=== PATIENT | female | born 1950 | race Caucasian/White ===

== ENCOUNTER → 2018-04-01 10:57 | Outpatient (CLI) | payer OTHER, SELFPAY ==
--- NOTE | 2018-04-01 | DI.MG.S_ITS ---
BILATERAL DIGITAL SCREENING MAMMOGRAM 3D/2D WITH CAD: 04/01/2018 CLINICAL: Routine screening. Family history of breast cancer. Comparison is made to exams dated: 05/07/2016 mammogram, 05/02/2016 mammogram, and 06/12/2013 mammogram - [facility]. There are scattered fibroglandular elements in both breasts. Current study was also evaluated with a Computer Aided Detection (CAD) system. There is a focal asymmetry in the right breast at 10 o'clock anterior depth. No other significant masses, calcifications, or other findings are seen in either breast. IMPRESSION: INCOMPLETE: NEEDS ADDITIONAL IMAGING EVALUATION The focal asymmetry in the right breast is indeterminate. Additional views with possible ultrasound are recommended. This exam was interpreted at Station ID: [id number]. NOTE: For mammograms, a report in lay terms will be sent to the patient. Approximately 15% of breast malignancies will not be visualized mammographically. In the management of a palpable breast mass, a negative mammogram must not discourage biopsy of a clinically suspicious lesion. Electronically Signed By: Evita ragland/josselyn:04/01/2018 12:17:11 letter sent: Additional Imaging Needed ACR BI-RADS Category 0: Incomplete 3340F
== END ==
PROVIDERS: PCP Nurse Practitioner Family; Visit Provider Nurse Practitioner Family
DX: Z12.31 Encounter for screening mammogram for malignant neoplasm of breast (principal); Z80.3 Family history of malignant neoplasm of breast
CPT/HCPCS: 77063; 77067

== ENCOUNTER → 2018-04-29 09:19 | Outpatient (CLI) | payer OTHER, SELFPAY ==
--- NOTE | 2018-04-29 | DI.MG.S_ITS ---
UNILATERAL RIGHT DIGITAL DIAGNOSTIC MAMMOGRAM 3D/2D WITH ADDITIONAL VIEWS: 04/29/2018 CLINICAL: Additional evaluation requested from prior study. Family history of breast cancer. Comparison is made to exams dated: 04/01/2018 mammogram - [facility], 05/07/2016 mammogram, and 05/02/2016 mammogram - [facility]. There are scattered fibroglandular elements in right breast. Previously identified 1.5 cm focal asymmetry in the right breast at 9 to 10 o'clock anterior depth on comparison screening mammograms persists with additional views. No other significant masses, calcifications, or other findings are seen in the breast. IMPRESSION: INCOMPLETE: NEEDS ADDITIONAL IMAGING EVALUATION Previously identified focal asymmetry in the right breast at 9 to 10 o'clock anterior depth on comparison screening mammograms persists with additional views. A targeted ultrasound is recommended for further evaluation, and will be performed immediately following this exam. This exam was interpreted at Station ID: [id number]. NOTE: For mammograms, a report in lay terms will be sent to the patient. Approximately 15% of breast malignancies will not be visualized mammographically. In the management of a palpable breast mass, a negative mammogram must not discourage biopsy of a clinically suspicious lesion. Electronically Signed By: Jose Antonio Tierney M.D. ecl/:04/29/2018 11:34:41 letter sent: Additional Imaging Needed ACR BI-RADS Category 0: Incomplete [id number]
--- NOTE | 2018-04-29 | DI.US.S_ITS ---
LIMITED ULTRASOUND OF RIGHT BREAST: 04/29/2018 CLINICAL: Patient returns today to evaluate a focal asymmetry in the right breast. Comparison is made to exams dated: 04/29/2018 mammogram, 04/01/2018 mammogram - [facility], 05/07/2016 mammogram, 05/02/2016 mammogram, 06/12/2013 mammogram, and 04/30/2011 mammogram - [facility]. Real-time and Doppler ultrasound of the right breast 8-10 o'clock, and retroareolar regions were performed. Jorge scale images of the real-time examination were reviewed. No mass or abnormality is identified. There is no ultrasound correlate for the previously identified 1.5 cm focal asymmetry in the right breast at 9 to 10 o'clock anterior depth on comparison screening and diagnostic mammograms. IMPRESSION: PROBABLY BENIGN No ultrasound correlate identified for the previously identified 1.5 cm focal asymmetry in the right breast at 9 to 10 o'clock anterior depth on comparison screening and diagnostic mammograms. This asymmetry is probably benign and a follow-up mammogram in 6 months is recommended to demonstrate stability. This exam was interpreted at Station ID: [id number]. Electronically Signed By: Jose Antonio Tierney M.D. ecl/:04/29/2018 11:35:06 letter sent: Followup Recommended Ultrasound BI-RADS: 3 Probably benign
== END ==
PROVIDERS: PCP Nurse Practitioner Family; Visit Provider Nurse Practitioner Family
DX: R92.8 Other abnormal and inconclusive findings on diagnostic imaging of breast (principal); Z80.3 Family history of malignant neoplasm of breast
CPT/HCPCS: 76642; 77065; G0279

== ENCOUNTER → 2018-11-11 08:55 | Outpatient (CLI) | payer OTHER, SELFPAY ==
--- NOTE | 2018-11-11 | DI.MG.S_ITS ---
UNILATERAL RIGHT DIGITAL DIAGNOSTIC MAMMOGRAM 3D/2D SHORT-TERM FOLLOW-UP: 11/11/2018 CLINICAL: Short term follow up right breast. Family history of breast cancer. Comparison is made to exams dated: 04/29/2018 mammogram, 04/01/2018 mammogram - [facility], 05/07/2016 mammogram, and 05/02/2016 mammogram - [facility]. There are scattered fibroglandular elements in right breast. The focal asymmetry in the right breast central to the nipple anterior depth is not seen in additional views. No other significant masses or calcifications are seen in the breast. IMPRESSION: There is no mammographic evidence of malignancy. A 1 year screening mammogram is recommended. This exam was interpreted at Station ID: [id number]. NOTE: For mammograms, a report in lay terms will be sent to the patient. Approximately 15% of breast malignancies will not be visualized mammographically. In the management of a palpable breast mass, a negative mammogram must not discourage biopsy of a clinically suspicious lesion. Electronically Signed By: Evita Urrutia M.D. lk/:11/11/2018 09:55:50 letter sent: Normal Exam ACR BI-RADS Category 2: Benign Finding(s) 3342F
== END ==
PROVIDERS: PCP Nurse Practitioner Family; Visit Provider Nurse Practitioner Family
DX: R92.8 Other abnormal and inconclusive findings on diagnostic imaging of breast (principal); Z80.3 Family history of malignant neoplasm of breast
CPT/HCPCS: 77065; G0279